=== PATIENT | female | born 1975 | race Caucasian/White ===

== ENCOUNTER 2018-01-31 21:35 | Emergency (ER) | payer MEDICAID ==
[~2018-01-31] VITALS: Ht 154.9 cm; Wt 68.7 kg
[2018-01-31 21:51] VITALS: Ht 154.9 cm; Wt 68.7 kg
[2018-02-01] VITALS: BP 120/77
== END 2018-02-01 | disposition home or self-care (01) ==
LOC: ED 21:35
DX: B34.9 Viral infection, unspecified (principal); E11.9 Type 2 diabetes mellitus without complications

== ENCOUNTER 2018-02-11 11:54 | Emergency (ER) | payer MEDICAID ==
[~2018-02-11] VITALS: Ht 165.1 cm; Wt 66.4 kg
[2018-02-11 12:00] VITALS: Ht 165.1 cm; Wt 66.4 kg
[2018-02-11 14:40] VITALS: BP 121/83
== END 2018-02-11 16:08 | disposition home or self-care (01) ==
LOC: ED 11:54
DX: S90.31XA Contusion of right foot, initial encounter (principal); S60.212A Contusion of left wrist, initial encounter; E11.9 Type 2 diabetes mellitus without complications; W17.89XA Other fall from one level to another, initial encounter; Y93.89 Activity, other specified; Y92.89 Other specified places as the place of occurrence of the external cause; Y99.8 Other external cause status